=== PATIENT | female | born 1960 | race Two or more races ===

== ENCOUNTER → 2018-02-13 | Emergency (ER) | payer OTHER ==
[~2018-02-13] VITALS: Ht 165.1 cm; Wt 66.2 kg
[~2018-02-13] MED LIST: TOPROL XL25 M1
== END | disposition left against medical advice (07) ==
LOC: ER 23:37
DX: Z53.20 Procedure and treatment not carried out because of patient's decision for unspecified reasons (principal)

== ENCOUNTER → 2018-03-19 | Emergency (ER) | payer OTHER ==
[~2018-03-19] VITALS: Ht 162.6 cm; Wt 68.9 kg
[~2018-03-19] MED LIST changes: +KETO10TA2 PO; +LOSARTAN-HCTZ1 EACH; +ORPHENADRINE C100 MG PO
== END | disposition home or self-care (01) ==
LOC: ER 21:13
DX: S20.211A Contusion of right front wall of thorax, initial encounter (principal); S60.221A Contusion of right hand, initial encounter; W18.39XA Other fall on same level, initial encounter; Y93.89 Activity, other specified; Y92.89 Other specified places as the place of occurrence of the external cause; Y99.8 Other external cause status

== ENCOUNTER 2019-03-20 06:24 | Day surgery (SDC) | payer OTHER | END 2019-03-20 13:50 | disposition home or self-care (01) | LOC: CIR.AMB 06:24 | DX: N84.0 Polyp of corpus uteri (principal); N95.0 Postmenopausal bleeding ==

== ENCOUNTER 2019-11-25 22:11 | Emergency (ER) | payer OTHER ==
[~2019-11-25] VITALS: Ht 162.6 cm; Wt 61.7 kg
== END 2019-11-26 00:38 | disposition home or self-care (01) ==
LOC: ER 22:11
DX: I16.1 Hypertensive emergency (principal); I10 Essential (primary) hypertension

== ENCOUNTER 2022-05-16 09:32 | Emergency (ER) | payer OTHER ==
[~2022-05-16] VITALS: Ht 162.6 cm; Wt 66.2 kg
[2022-05-16] MEDS ORDERED: DICLOFENAC POTA50 MG PO (12:41)
[2022-05-16] MEDS ORDERED: CYCLOBENZAPRINE10 MG PO (12:41)
== END 2022-05-16 13:17 ==
LOC: ER 09:32
DX: S33.5XXA Sprain of ligaments of lumbar spine, initial encounter (principal); W19.XXXA Unspecified fall, initial encounter; Y93.9 Activity, unspecified; Y92.9 Unspecified place or not applicable; Z91.018 Allergy to other foods; S13.9XXA Sprain of joints and ligaments of unspecified parts of neck, initial encounter